=== PATIENT | female | born 2000 | race Caucasian/White ===

== ENCOUNTER → 2018-06-25 | Outpatient (CLI) | payer BC ==
[2018-06-25 08:49] LABS: PLATELET COUNT, AUTOMATED 487 K/uL (150-450)
== END ==
LOC: LAB 08:17
PROVIDERS: ATTEND Nurse Practitioner
DX: L70.0 Acne vulgaris (principal); Z79.899 Other long term (current) drug therapy
CPT/HCPCS: 36415; 81025; 82040; 82247; 82310; 82374; 82435; 82465; 82565; 82947; 83718; 84075; 84132; 84155; 84295; 84450; 84460; 84478; 84520; 85025

== ENCOUNTER → 2018-07-19 | Outpatient (CLI) | payer BC ==
[2018-07-19 14:07] LABS: PLATELET COUNT, AUTOMATED 480 K/uL (150-450)
== END ==
LOC: LAB 13:43
PROVIDERS: ATTEND Nurse Practitioner
DX: Z79.899 Other long term (current) drug therapy (principal); L70.0 Acne vulgaris
CPT/HCPCS: 36415; 81025; 85025

== ENCOUNTER → 2018-08-23 | Outpatient (CLI) | payer BC ==
[2018-08-23 13:45] LABS: PLATELET COUNT, AUTOMATED 513 K/uL (150-450)
[2018-08-23 14:00] LABS: LDL CHOLESTEROL 103 mg/dl
== END ==
LOC: LAB 13:32
PROVIDERS: ATTEND Nurse Practitioner
DX: L70.0 Acne vulgaris (principal); Z79.899 Other long term (current) drug therapy
CPT/HCPCS: 36415; 81025; 82040; 82247; 82310; 82374; 82435; 82465; 82565; 82947; 83718; 84075; 84132; 84155; 84295; 84450; 84460; 84478; 84520; 85025

== ENCOUNTER → 2018-10-07 | Outpatient (CLI) | payer BC ==
[~2018-10-07] MED LIST: ISOT30CA4 PO; ISOT40CA13 PO
== END ==
LOC: LAB 14:17
PROVIDERS: ATTEND Nurse Practitioner
DX: L70.9 Acne, unspecified (principal); Z79.899 Other long term (current) drug therapy
CPT/HCPCS: 81025

== ENCOUNTER → 2018-11-06 | Outpatient (CLI) | payer BC ==
[2018-11-06 13:38] LABS: PLATELET COUNT, AUTOMATED 564 K/uL (150-450)
[2018-11-06 13:55] LABS: LDL CHOLESTEROL 103 mg/dl
== END ==
LOC: LAB 13:24
PROVIDERS: ATTEND Nurse Practitioner
DX: L70.0 Acne vulgaris (principal); Z79.899 Other long term (current) drug therapy
CPT/HCPCS: 36415; 81025; 82040; 82247; 82310; 82374; 82435; 82465; 82565; 82947; 83718; 84075; 84132; 84155; 84295; 84450; 84460; 84478; 84520; 85025

== ENCOUNTER → 2018-12-05 | Outpatient (CLI) | payer BC ==
[2018-12-05 12:31] LABS: PLATELET COUNT, AUTOMATED 570 K/uL (150-450)
[2018-12-05 13:48] LABS: LDL CHOLESTEROL 112 mg/dl
== END ==
LOC: LAB 12:08
PROVIDERS: ATTEND Nurse Practitioner
DX: L70.0 Acne vulgaris (principal); Z79.899 Other long term (current) drug therapy
CPT/HCPCS: 81025; 82040; 82247; 82310; 82374; 82435; 82465; 82565; 82947; 83718; 84075; 84132; 84155; 84295; 84450; 84460; 84478; 84520; 85025

== ENCOUNTER → 2019-01-03 | Outpatient (CLI) | payer BC ==
[2019-01-03 16:28] LABS: PLATELET COUNT, AUTOMATED 541 K/uL (150-450)
[2019-01-03 16:40] LABS: LDL CHOLESTEROL 88 mg/dl
== END ==
LOC: LAB 16:07
PROVIDERS: ATTEND Nurse Practitioner
DX: L70.0 Acne vulgaris (principal); Z79.899 Other long term (current) drug therapy
CPT/HCPCS: 36415; 81025; 82040; 82247; 82310; 82374; 82435; 82465; 82565; 82947; 83718; 84075; 84132; 84155; 84295; 84450; 84460; 84478; 84520; 85025